=== PATIENT | male | born 1965 | race Caucasian/White ===

== ENCOUNTER → 2023-01-07 | Outpatient (CLI) | payer OTHER, BC ==
--- NOTE | 2023-01-07 15:57 | MR ---
EXAMINATION TYPE: MR brain and iac wo/w con DATE OF EXAM: 01/07/2023 2:24 PM COMPARISON: NONE HISTORY: Hearing loss TECHNIQUE: Multiplanar and multispin-echo imaging of the brain was performed both before and after the administr ation of contrast. High-resolution images are obtained of the internal auditory canals performed uti lizing 8 mL intravenous Gadavist contrast. The ventricles, basal cisterns and sulci overlying the cerebral convexities are within normal limits. There is no evidence for midline shift or mass effect. Acute intracranial hemorrhage or extra-axial collection is not evident. There are no abnormal areas of increased or decreased signal intensity within the brain parenchyma. High-resolution imaging of the internal auditory canals fails demonstrate evidence for an enhancing a coustic schwannoma or cerebellopontine cistern angle mass. Following contrast administration, there is no evidence for pathologic enhancement or enhancing mass. The mastoid air cells are well-aerated. Chronic maxillary sinusitis noted. Mild chronic ethmoid align ment without frontal sinusitis seen. IMPRESSION: 1. No evidence of acoustic schwannoma or cerebellopontine angle mass. 2. Chronic sinusitis.
== END | disposition home or self-care (01) ==
LOC: RADMRIMAIN 13:17
PROVIDERS: ATTEND Family Medicine
DX: J32.0 Chronic maxillary sinusitis (principal); H93.13 Tinnitus, bilateral
CPT/HCPCS: 70553; A9585